=== PATIENT | female | born 1950 | race Caucasian/White ===

== ENCOUNTER → 2017-03-27 | Outpatient (CLI) | payer OTHER ==
[~2017-03-27] MED LIST: ABILIFY 5 MG TAB5 M1 PO; ACCUNEB SO1.25 MG/1; ACETAMINOPHEN325 M1 PO; ADULT LOW DOSE81 MG PO; ADVAIR HFA 1112 UNIT INH; AFLURIA 2045 MCG/0.4; ALBUTEROL2.5 MG/0.1 INH; ALBUTEROL2.5 MG/32 IH; ALLERCLEAR10 MG PO; AMBIEN 5 MG TABL5 M1 PO; AMITRIPTYLINE H50 M2 GT; AMITRIPTYLINE H75 M1 PO; ANAPROX PO; ARTIFICIALS TEA30 ML OP; AZITHROMYCIN 2250 MG; CLEOCIN HCL150 MG PO; CLEOCIN HCL300 MG PO; CLONAZEPAM PO; COUMADIN 5 MG TA5 M1 PO; COUMADIN6 MG PO; COZAAR 25 MG TA25 M1 PO; CYMBALTA60 MG PO; DEPAKOTE 250MG250 M1 PO; DEPAKOTE ER500 MG PO; DEPAKOTE500 MG PO; DUONEB 2.5-0.5 M3 ML INH; DYAZIDE 37.5-21 EACH PO; FISH OIL 1,0001 EAC5 PO; FISH OIL 1,0001 EAC9 PO; FLEXERIL PO; IMMODIUM PO; JANTOVEN4 MG PO; LANTUS100 UNIT/M SUBQ; LATUDA20 MG PO; LATUDA40 MG PO; LAXATIVE17.2 MG PO; LEVAQUIN 500 M500 M2 PO; LEVAQUIN 500 M500 M4 PO; LISINOPRIL20 MG PO; LOPERAMIDE 2 MG2 M1; LOPERAMIDE 2 MG2 M1 PO; LYRICA 50 MG50 MG PO; LYRICA 75 MG CA75 MG PO; LYRICA150 MG PO; MAALOX ADVANCE355 M1 PO; MACROBID 100 M100 M1 PO; MAG-OX 400 TAB400 MG PO; MELATONIN1 MG PO; MELOXICAM15 MG PO; METFORMIN HCL500 MG PO; MIRALAX255 GM PO; MORPHINE; MORPHINE SULFAT15 M3 PO; MS CONTIN 30 MG30 M1 PO; MS CONTIN15 MG PO; MS CONTIN30 MG PO; MUCINEX TA600 MG/TA2 PO; MUCINEX600 MG PO; NEXIUM 40 MG CA40 M1 PO; NEXIUM40 MG PO; NOVOLOG100 UNIT/1 SUBQ; OCEAN45 ML NASAL; OMEPRAZOLE 20 M20 MG PO; ONDANSETRON HCL4 M2 PO; PAXIL 20 MG TAB20 M1 PO; PAXIL10 MG PO; PAXIL20 MG PO; PAXIL40 MG PO; PHENERGAN 25 MG25 M1 PO; PNEUMOVAX25 MCG/0.5; PROTONIX40 M1 PO; PROTONIX40 M2 PO; ROBITUSSIN DM118 ML PO; SENNA-LAX8.6 MG PO; SENOKOT-S1 TA1 PO; SINGULAIR 10 MG10 MG PO; SULAR10 MG PO; SULAR20 MG PO; SYNTHROID100 MCG PO; SYNTHROID75 MCG PO; TEARS NATURALE1 EACH OPHTHALMIC; TOPAMAX25 M1 PO; TOPROL XL25 MG PO; TOPROL XL50 MG PO; TRAMADOL 50 MG50 MG PO; TYLENOL325 MG PO; ULTRAM 50MG TAB50 MG PO; VITAMIN D 5050000 I1 PO; XARELTO20 MG PO; ZESTRIL10 MG PO; ZPACK; ZYPREXA5 MG PO; ZYRTEC10 M2 PO
== END ==
LOC: RAD 08:48
DX: M21.851 Other specified acquired deformities of right thigh (principal); R10.2 Pelvic and perineal pain

== ENCOUNTER 2018-02-11 07:04 | Inpatient (IN) | payer OTHER ==
[~2018-02-11] VITALS: Ht 157.5 cm; Wt 88.0 kg
--- NOTE | ~2018-02-11 | O ---
[facility] [place] [address] OPERATIVE REPORT Name: COLLETTE VERNON Room #: 405-P ADM IN M.R.#: [id number] Admission: 02/11/18 Attend Phys: Chucky Hood DO Discharge: Date of : 50 Report #: [id number] THIS REPORT FOR: //name// CC: Chucky Celestin Akkulugari DATE OF SERVICE: 02/11/2018 SERVICE: Orthopedics. FACILITY: [facility]. SURGEON: Bashir Castillo MD [employer] SCOUT: None. PREOPERATIVE DIAGNOSIS: Right shoulder dislocation. POSTOPERATIVE DIAGNOSES: 1. Right shoulder dislocation. 2. Right shoulder glenohumeral arthritis. PROCEDURE: Closed reduction, right shoulder dislocation. COMPLICATIONS: None. DRAINS: None. SPECIMENS: None. ANESTHESIA: General with LMA. FINDINGS: Successful closed reduction, reduced on multiple x-ray views. HISTORY AND INDICATIONS: The patient is a 67-year-old female with multiple psychiatric conditions who reportedly threw herself from her bed out of agitation approximately 3 days ago while she was staying at her living facility. She developed bruising and reported pain around the shoulder and so she was brought to the Emergency Room earlier today. X-rays here revealed a shoulder dislocation. She underwent an attempted closed reduction, but they were having difficulty due to her body habitus, the duration of the dislocation being 3 days as well as difficulty maintaining her oxygen sat with sedation. Therefore, Orthopedics was consulted and we made plans to do this in the operating room. We did so urgently as we were unable to reach her durable power of trade mark attorney, but due to the risk of significant neurovascular compromise and the health of her dominant extremity, it was felt that proceeding was most appropriate. [facility] [address] [place] [address] OPERATIVE REPORT Name: COLLETTE VERNON Room #: 405-P [facility] IN M.R.#: [id number] Admission: 02/11/18 Attend Phys: Chucky Hood DO Discharge: Date of : 50 Report #: [id number] PROCEDURE IN DETAIL: After right upper extremity was correctly identified as the operative extremity, the patient was taken to the operating room and general anesthesia was induced without complication. She was placed supine on operating table. C-arm was brought in and then the torso was stabilized in gentle longitudinal traction with rotation and elevation was performed. The humeral head was then palpated in the axilla and was manipulated into the glenoid socket. The shoulder was stable to most positions except for abduction and external rotation at 90 degrees of abduction, which caused redislocation and subluxation. The shoulder roll was placed in lower degrees of abduction, external rotation was found to be stable, and it was confirmed reduced on Grashey AP, scapular Y and axillary lateral x-rays. The arm was then placed in a shoulder immobilizer. The patient was awakened from anesthesia and taken to recovery room in stable condition. There were no complications. All counts were recorded as correct. Plan will be 4 weeks of shoulder immobilizer multimedia manager with range of motion as tolerated afterwards. <ELECTRONICALLY SIGNED> By: Bashir Castillo MD 02/11/18 1734 [id number] Bashir Castillo MD /nt
[2018-02-11 07:05] VITALS: BP 132/109
[2018-02-11] MEDS ORDERED: WELLBUTRIN XL150 MG PO (07:19)
[2018-02-11] MEDS ORDERED: 24HOUR ALLERGY10 MG PO (07:20)
[2018-02-11] MEDS ORDERED: TOPROL XL100 MG PO (07:27)
[2018-02-11] MEDS ORDERED: MOBIC7.5 MG PO (07:27)
[2018-02-11] MEDS ORDERED: MULTIPLE VITAM1 EAC2 PO (07:28)
[2018-02-11] MEDS ORDERED: VITAMIN D3400 UNIT PO (07:29)
[2018-02-11] MEDS ORDERED: ADVAIR HFA 230M12 GM INH (07:31)
[2018-02-11] MEDS ORDERED: CLONIDINE HCL0.2 M2 PO (07:32)
[2018-02-11] MEDS ORDERED: DEPAKOTE 250MG250 M1 PO (07:32)
[2018-02-11] MEDS ORDERED: DULOXETINE HCL20 MG PO (07:33)
[2018-02-11] MEDS ORDERED: COZAAR 50 MG TA50 M2 PO (07:33)
[2018-02-11] MEDS ORDERED: SEROQUEL 25 MG25 M1 PO (07:34)
[2018-02-11] MEDS ORDERED: NEURONTIN 300300 M1 PO (07:35)
[2018-02-11] MEDS ORDERED: HALDOL 0.5 MG0.5 MG PO (07:35)
[2018-02-11] MEDS ORDERED: ZYPREXA2.5 MG PO (07:46)
[2018-02-11] MEDS ORDERED: XANAX 0.25 MG0.25 MG PO (07:47)
[2018-02-11] MEDS ORDERED: LATUDA120 MG PO (07:50)
[2018-02-11] MEDS ORDERED: TRAZODONE HCL100 MG PO (07:51)
[2018-02-11] MEDS ORDERED: XALATAN2.5 ML OPHTHALMIC (07:51)
[2018-02-11] MEDS ORDERED: ONDANSETRON HCL8 M2 PO (07:57)
[2018-02-11] MEDS ORDERED: DURAGESIC25 MCG/HR TRANSDERM (07:58)
[2018-02-11 09:40] LABS: HEMATOCRIT 40.8 % (37.0-47.0); HEMOGLOBIN 13.9 gm/dL (12.0-15.0); MCH 31.6 pg (26.0-34.0); MCHC 34.2 g/dL (28.0-37.0); MCV 92.4 fL (80.0-100.0); PLATELET COUNT 414 thou/uL (150-400); RBC 4.41 mil/uL (4.20-5.00); RDW 12.5 % (10.5-14.5); WBC 18.7 thou/uL (4.0-11.0)
[2018-02-11 09:47] VITALS: BP 196/101
[2018-02-11 09:48] LABS: CALCIUM 9.1 mg/dL (8.5-10.1); CREATININE 0.8 mg/dL (0.6-1.0); POTASSIUM 3.7 mmol/L (3.5-5.1)
[2018-02-11 10:03] LABS: ABSOLUTE NEUTROPHILS 14.8 thou/uL (1.4-8.2)
[2018-02-11 10:05] LABS: PROTIME 10.4 Seconds (9.3-11.4)
[2018-02-11 10:58] VITALS: BP 157/86
[2018-02-11 11:00] VITALS: BP 178/99
[2018-02-11 18:31] VITALS: BP 147/69
[2018-02-11 20:00] VITALS: BP 107/69
[2018-02-12] VITALS: BP 127/51
[2018-02-12 02:12] LABS: GLYCOHEMOGLOBIN (HGB A1C) 7.9 % (4.8-5.6)
[2018-02-12 04:00] VITALS: BP 145/64
[2018-02-12 04:36] LABS: URINE BILIRUBIN 1+ (Negative); URINE BLOOD NEGATIVE (Negative); URINE CLARITY CLOUDY; URINE COLOR YELLOW; URINE GLUCOSE-RANDOM* TRACE (Negative); URINE KETONES 1+ (Negative); URINE LEUKOCYTES-REFLEX NEGATIVE (Negative); URINE NITRITE-REFLEX NEGATIVE (Negative); URINE PROTEIN (DIPSTICK) NEGATIVE (Negative); URINE SPECIFIC GRAVITY >= 1.030 (1.005-1.035)
[2018-02-12 04:42] LABS: CASTS None Seen /LPF (None Seen); ICTOTEST (BILI CONFIRMATORY) Positive (Negative); MUCUS None Seen strn/LPF (None Seen); SQUAMOUS None Seen /LPF (0-3); URINE RBC None Seen /HPF (0-2); URINE WBC-REFLEX None Seen /HPF (0-5)
[2018-02-12 04:43] LABS: BACTERIA-REFLEX >30 Many /HPF (None Seen); CRYSTALS None Seen /LPF (None Seen)
[2018-02-12 07:23] LABS: ABSOLUTE NEUTROPHILS 6.4 thou/uL (1.4-8.2); BASOPHILS 0.5 % (0.0-2.0); EOSINOPHILS 0.4 % (0.0-3.0); HEMATOCRIT 40.7 % (37.0-47.0); HEMOGLOBIN 13.6 gm/dL (12.0-15.0); LYMPHOCYTES 32.8 % (24.0-44.0); MCH 31.3 pg (26.0-34.0); MCHC 33.5 g/dL (28.0-37.0); MCV 93.4 fL (80.0-100.0); MONOCYTES 11.2 % (1.0-8.0); PLATELET COUNT 366 thou/uL (150-400); POLYS 55.1 % (36.0-66.0); RBC 4.35 mil/uL (4.20-5.00); RDW 12.9 % (10.5-14.5); WBC 11.7 thou/uL (4.0-11.0)
[2018-02-12 07:39] LABS: ALBUMIN 2.7 g/dL (3.4-5.0); CALCIUM 8.9 mg/dL (8.5-10.1); CREATININE 0.8 mg/dL (0.6-1.0); MAGNESIUM 1.8 mg/dL (1.8-2.4); POTASSIUM 3.5 mmol/L (3.5-5.1); TOTAL BILIRUBIN 1.1 mg/dL (<0.1-1.0); TOTAL PROTEIN 6.5 g/dL (6.4-8.2)
[2018-02-12 08:46] VITALS: BP 103/56
[2018-02-12 16:00] VITALS: BP 123/61
== END 2018-02-12 20:00 | DRG 562 ==
LOC: ER 07:04 → 4N 09:30 → EROBS 09:30 → 4N 10:08
PROVIDERS: Emergency Medicine; Nurse Practitioner
PROC: 2W38X1Z Immobilization of Right Upper Extremity using Splint (ICD-10-PCS; principal; 2018-02-11)
PROC: 0RSJXZZ Reposition Right Shoulder Joint, External Approach (ICD-10-PCS; principal; 2018-02-11)
DX: S43.004A Unspecified dislocation of right shoulder joint, initial encounter (principal); J96.21 Acute and chronic respiratory failure with hypoxia; M19.011 Primary osteoarthritis, right shoulder; F31.9 Bipolar disorder, unspecified; G89.4 Chronic pain syndrome; K21.9 Gastro-esophageal reflux disease without esophagitis; E03.9 Hypothyroidism, unspecified; I10 Essential (primary) hypertension; E83.42 Hypomagnesemia; E66.9 Obesity, unspecified; J44.9 Chronic obstructive pulmonary disease, unspecified; S40.011A Contusion of right shoulder, initial encounter; E11.9 Type 2 diabetes mellitus without complications; Z88.2 Allergy status to sulfonamides; Z88.6 Allergy status to analgesic agent; Z86.718 Personal history of other venous thrombosis and embolism; Z68.35 Body mass index [BMI] 35.0-35.9, adult; Z88.0 Allergy status to penicillin; Z87.891 Personal history of nicotine dependence; Z88.8 Allergy status to other drugs, medicaments and biological substances; Z79.899 Other long term (current) drug therapy; Z79.82 Long term (current) use of aspirin; W06.XXXA Fall from bed, initial encounter; Y93.89 Activity, other specified; Y92.89 Other specified places as the place of occurrence of the external cause; Y99.8 Other external cause status
CPT/HCPCS: 10091; 50010; 50101; 62110; 62900; 70005

== ENCOUNTER 2018-02-23 14:14 | Emergency (ER) | payer OTHER ==
[~2018-02-23] VITALS: Ht 157.5 cm; Wt 104.3 kg
[~2018-02-23 14:14] MED LIST changes: +24HOUR ALLERGY10 MG PO; +ADVAIR HFA 230M12 GM INH; +CLONIDINE HCL0.2 M2 PO; +COZAAR 50 MG TA50 M2 PO; +DULOXETINE HCL20 MG PO; +DURAGESIC25 MCG/HR TRANSDERM; +HALDOL 0.5 MG0.5 MG PO; +LATUDA120 MG PO; +MOBIC7.5 MG PO; +MULTIPLE VITAM1 EAC2 PO; +NEURONTIN 300300 M1 PO; +ONDANSETRON HCL8 M2 PO; +SEROQUEL 25 MG25 M1 PO; +TOPROL XL100 MG PO; +TRAZODONE HCL100 MG PO; +VITAMIN D3400 UNIT PO; +WELLBUTRIN XL150 MG PO; +XALATAN2.5 ML OPHTHALMIC; +XANAX 0.25 MG0.25 MG PO; +ZYPREXA2.5 MG PO
== END 2018-02-23 15:54 ==
LOC: ER 14:14
DX: S00.83XA Contusion of other part of head, initial encounter (principal); G89.29 Other chronic pain; M25.511 Pain in right shoulder; F31.9 Bipolar disorder, unspecified; M79.7 Fibromyalgia; K21.9 Gastro-esophageal reflux disease without esophagitis; I10 Essential (primary) hypertension; E03.9 Hypothyroidism, unspecified; E66.9 Obesity, unspecified; F17.210 Nicotine dependence, cigarettes, uncomplicated; Z68.41 Body mass index [BMI] 40.0-44.9, adult; Z87.440 Personal history of urinary (tract) infections; Z86.2 Personal history of diseases of the blood and blood-forming organs and certain disorders involving the immune mechanism; Z88.6 Allergy status to analgesic agent; Z88.8 Allergy status to other drugs, medicaments and biological substances; Z88.5 Allergy status to narcotic agent; Z88.0 Allergy status to penicillin; Z88.2 Allergy status to sulfonamides; Z86.718 Personal history of other venous thrombosis and embolism; W06.XXXA Fall from bed, initial encounter; Y93.89 Activity, other specified; Y92.89 Other specified places as the place of occurrence of the external cause; Y99.8 Other external cause status

== ENCOUNTER 2018-02-26 02:46 | Emergency (ER) | payer OTHER ==
[~2018-02-26] VITALS: Ht 157.5 cm; Wt 81.7 kg
== END 2018-02-26 05:13 | disposition home or self-care (01) ==
LOC: ER 02:46
DX: S00.83XA Contusion of other part of head, initial encounter (principal); M25.511 Pain in right shoulder; F31.9 Bipolar disorder, unspecified; G89.29 Other chronic pain; M79.7 Fibromyalgia; K21.9 Gastro-esophageal reflux disease without esophagitis; I10 Essential (primary) hypertension; E03.9 Hypothyroidism, unspecified; F17.210 Nicotine dependence, cigarettes, uncomplicated; Z87.440 Personal history of urinary (tract) infections; Z86.718 Personal history of other venous thrombosis and embolism; Z90.89 Acquired absence of other organs; E66.9 Obesity, unspecified; Z88.6 Allergy status to analgesic agent; Z88.8 Allergy status to other drugs, medicaments and biological substances; Z88.5 Allergy status to narcotic agent; Z88.0 Allergy status to penicillin; Z88.2 Allergy status to sulfonamides; Z68.32 Body mass index [BMI] 32.0-32.9, adult; W06.XXXA Fall from bed, initial encounter; Y93.89 Activity, other specified; Y92.89 Other specified places as the place of occurrence of the external cause; Y99.8 Other external cause status

== ENCOUNTER 2018-03-27 23:01 | Emergency (ER) | payer OTHER ==
[~2018-03-27] VITALS: Ht 157.5 cm; Wt 68.0 kg
[2018-03-27] MEDS ORDERED: COLACE100 MG PO (23:17)
[2018-03-27] MEDS ORDERED: METFORMIN HCL500 MG PO (23:18)
[2018-03-27] MEDS ORDERED: ATIVAN1 MG PO (23:19)
[2018-03-27] MEDS ORDERED: MIRALAX17 G1 PO (23:19)
[2018-03-27] MEDS ORDERED: DURAGESIC25 MCG/HR TRANSDERM (23:22)
== END 2018-03-28 01:31 | disposition home or self-care (01) ==
LOC: ER 23:01
DX: S09.90XA Unspecified injury of head, initial encounter (principal); M19.90 Unspecified osteoarthritis, unspecified site; I10 Essential (primary) hypertension; K21.9 Gastro-esophageal reflux disease without esophagitis; E03.9 Hypothyroidism, unspecified; Z87.01 Personal history of pneumonia (recurrent); F31.9 Bipolar disorder, unspecified; N19 Unspecified kidney failure; F17.210 Nicotine dependence, cigarettes, uncomplicated; Z88.1 Allergy status to other antibiotic agents; Z88.0 Allergy status to penicillin; Z88.2 Allergy status to sulfonamides; Z88.5 Allergy status to narcotic agent; W05.0XXA Fall from non-moving wheelchair, initial encounter; Y93.89 Activity, other specified; Y92.89 Other specified places as the place of occurrence of the external cause; Y99.8 Other external cause status